=== PATIENT | male | born 1995 | race Caucasian/White ===

== ENCOUNTER 2017-11-29 21:53 | Emergency (ER) | payer SELFPAY ==
[~2017-11-29] VITALS: Ht 172.7 cm; Wt 98.0 kg
[2017-11-29 21:59] VITALS: Ht 172.7 cm; Wt 98.0 kg
[2017-11-29 22:34] LABS: BASOPHIL % 0.8 % (0-2); PLATELET COUNT 181 x10^3mcL (130-400); RED CELL DISTRIBUTION WIDTH 12.8 % (11.5-14.5)
[2017-11-29 23:11] LABS: CARBON DIOXIDE 25.7 mmol/L (21-32); CHLORIDE SERUM 101 mmol/L (98-107); CREATININE SERUM 1.2 mg/dL (0.7-1.3); GFR1 > 60 mL/min; GLUCOSE SERUM 130 mg/dL (74-106); POTASSIUM SERUM 3.6 mmol/L (3.5-5.1); SODIUM SERUM 138 mmol/L (136-145)
[2017-11-29 23:16] LABS: ALBUMIN 3.9 g/dL (3.4-5.0); ALKALINE PHOSPHATASE 58 U/L (46-116); ALT/SGPT 39 U/L (16-63); AST/SGOT 20 U/L (15-37); BILIRUBIN TOTAL 0.52 mg/dL (0.20-1.00)
[2017-11-29 23:17] LABS: TOTAL PROTEIN, SERUM 8.4 g/dL (6.4-8.2)
[2017-11-30 00:16] VITALS: BP 137/59
== END 2017-11-30 00:16 | disposition home or self-care (01) ==
LOC: ED 21:53
PROVIDERS: Emergency Medicine
DX: J11.1 Influenza due to unidentified influenza virus with other respiratory manifestations (principal); M79.1 Myalgia
CPT/HCPCS: J7030

== ENCOUNTER 2018-10-24 18:10 | Emergency (ER) | payer OTHER ==
[~2018-10-24] VITALS: Ht 172.7 cm; Wt 85.7 kg
[2018-10-24 18:33] VITALS: Ht 172.7 cm; Wt 85.7 kg
[2018-10-24 23:24] VITALS: BP 128/62
== END 2018-10-24 23:24 | disposition home or self-care (01) ==
LOC: ED 18:10
DX: S61.011A Laceration without foreign body of right thumb without damage to nail, initial encounter (principal); W26.8XXA Contact with other sharp object(s), not elsewhere classified, initial encounter; Y93.89 Activity, other specified; Y92.89 Other specified places as the place of occurrence of the external cause; Y99.0 Civilian activity done for income or pay
CPT/HCPCS: J2001